=== PATIENT | female | born 2000 | race Caucasian/White ===

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

== ENCOUNTER 2022-03-18 15:30 | Outpatient (CLI) | payer MEDICAID ==
[2022-03-19 23:05] LABS: BACTERIAL VAGINOSIS DNA POSITIVE (NEGATIVE); CANDIDA GLABRATA DNA NEGATIVE (NEGATIVE); CANDIDA GROUP DNA NEGATIVE (NEGATIVE); CANDIDA KRUSEI DNA NEGATIVE (NEGATIVE); TRICHOMONAS VAGINALIS DNA NEGATIVE (NEGATIVE)
[2022-03-20 00:08] LABS: CHLAMYDIA TRACHOMATIS DNA NEGATIVE (NEGATIVE); NEISSERIA GONORRHOEAE DNA NEGATIVE (NEGATIVE)
== END 2022-03-18 23:59 | disposition home or self-care (01) ==
LOC: LAB.R 15:30
PROVIDERS: ATTEND Nurse Practitioner
DX: N89.8 Other specified noninflammatory disorders of vagina (principal); Z11.3 Encounter for screening for infections with a predominantly sexual mode of transmission
CPT/HCPCS: 81514; 87491; 87591; 87661

== ENCOUNTER 2022-04-02 20:29 | Outpatient (CLI) | payer MEDICAID ==
--- NOTE | 2022-04-02 22:55 | Ultrasound Report ---
PROCEDURE: Pelvic w/Transvaginal INDICATIONS: PELVIC PAIN TECHNIQUE: Real-time scanning was performed of the pelvic organs, with image documentation. Additional endovagi nal scanning was necessary due to incomplete visualization of the adnexal and endometrial structures by transabdominal scanning. COMPARISON: None. FINDINGS: Uterus: Uterus is anteverted and normal in size at 6.2 x 3.9 x 5.1 cm. The myometrium is heterogene ous. The endometrium measures 9 mm in combined thickness. Intrauterine device is seen in expected p osition in the endometrial canal. Ovaries: The right ovary measures 4.8 x 3.1 x 4 cm, with a calculated ovarian volume of 31 cc. The left ovary measures 3.1 x 1.7 x 2.6 cm, with a calculated ovarian volume of 7 cc. A right ovarian cys t is seen measuring 3.3 x 2.4 x 3.2 cm with internal daughter cyst, consistent with a physiologic cys t. Less than 12 follicles can be seen in each ovary. No adnexal masses are seen. Other: No pathologic free abdominal or pelvic fluid. IMPRESSION: 1.Right ovary is enlarged by a 3.3 cm physiologic cyst. No signs of ovarian torsion. 2.Intrauterine device is seen in expected position. Reviewed by: Maikel Shay MD on 04/02/2022 10:54 PM PST Approved by: Maikel Shay MD on 04/02/2022 10:54 PM PST Station ID: [id number]
== END 2022-04-02 20:30 | disposition home or self-care (01) ==
LOC: DI 20:29
PROVIDERS: ATTEND Nurse Practitioner
DX: N83.201 Unspecified ovarian cyst, right side (principal); Z97.5 Presence of (intrauterine) contraceptive device

== ENCOUNTER 2022-06-01 14:01 | Outpatient (CLI) | payer MEDICAID ==
--- NOTE | 2022-06-02 15:11 | Ultrasound Report ---
LIMITED ULTRASOUND OF LEFT BREAST: 06/01/2022 CLINICAL: Left breast thickening laterally. No prior exams were available for comparison. Ultrasound of the left breast outer aspect was performed. Ye scale images of the real-time examin ation were reviewed. No significant abnormalities were seen sonographically in the left breast. Specifically, no finding to correspond to the patient's lateral left breast firm palpable abnormality. IMPRESSION: NEGATIVE There is no sonographic correlate to the patient's palpable abnormality and no evidence of malignancy . Screening mammography beginning at age 40 is recommended. Findings and recommendations were conveye d to the patient at time of exam. This exam was interpreted at Station ID: [id number]. Electronically Signed By: Payal harp/:06/01/2022 14:43:49 Ultrasound BI-RADS: 1 Negative BI-RADS CATEGORY: (1) - 1 Unspecified - other recall n/a LATERALITY: (B)
== END 2022-06-01 14:02 | disposition home or self-care (01) ==
LOC: DI 14:01
PROVIDERS: ATTEND Nurse Practitioner
DX: N63.23 Unspecified lump in the left breast, lower outer quadrant (principal)

== ENCOUNTER 2022-06-14 19:35 | Outpatient (CLI) | payer MEDICAID ==
--- NOTE | 2022-06-15 14:44 | Ultrasound Report ---
PROCEDURE: Pelvic w/Transvaginal INDICATIONS: OVARIAN CYST TECHNIQUE: Real-time scanning was performed of the pelvic organs, with image documentation. Additional endovagi nal scanning was necessary due to incomplete visualization of the adnexal and endometrial structures by transabdominal scanning. COMPARISON: None. FINDINGS: Uterus: Uterus is anteverted and normal in size at 6.7 x 3.9 x 5.7 cm. The myometrium is homogeneou s. No discrete uterine fibroids. The endometrium measures 7 mm in combined thickness. Intrauterine device is noted in its central endometrial location. No endometrial mass or fluid. Ovaries: The right ovary measures 3.3 x 1.7 x 3.4 cm, with a calculated ovarian volume of 9.8 cc. T he left ovary measures 3.5 x 2 x 3.3 cm, with a calculated ovarian volume of 12.2 cc. 2.4 x 1.4 x 3 c m cystic structure is noted in left ovary and contains a daughter cyst. Less than 12 follicles can be seen in each ovary. No adnexal masses are seen. Other: No pathologic free abdominal or pelvic fluid. IMPRESSION: 1. Slightly complex appearing left ovarian cyst as above suggest ultrasound follow-up. No right ovari an cyst is seen on the current study. 2. No solid-appearing ovarian lesion. 3. Normal-appearing uterus and endometrium. Intrauterine device is in its location. Reviewed by: Naseem Green MD on 06/15/2022 2:43 PM PST Approved by: Naseem Green MD on 06/15/2022 2:43 PM PST Station ID: [id number]
== END 2022-06-14 19:36 | disposition home or self-care (01) ==
LOC: DI 19:35
PROVIDERS: ATTEND Nurse Practitioner
DX: N83.202 Unspecified ovarian cyst, left side (principal); Z97.5 Presence of (intrauterine) contraceptive device

== ENCOUNTER 2022-12-28 15:37 | Outpatient (CLI) | payer MEDICAID ==
--- NOTE | 2022-12-29 10:49 | Ultrasound Report ---
PROCEDURE: Pelvic w/Transvaginal INDICATIONS: OVARIAN CYST TECHNIQUE: Real-time scanning was performed of the pelvic organs, with image documentation. Additional endovagi nal scanning was necessary due to incomplete visualization of the adnexal and endometrial structures by transabdominal scanning. COMPARISON: Prior pelvic ultrasound dated 06/14/2022 FINDINGS: Uterus: Uterus is anteverted and normal in size at 7.3 x 3.6 x 5.5 cm. The myometrium is homogeneou s. The endometrium measures 7.2 mm in combined thickness. Intrauterine device in expected position. Ovaries: The right ovary measures 3.4 x 2.2 x 1.4 cm, with a calculated ovarian volume of 7.4 cc. T he left ovary measures 3.9 x 2.6 x 2.4 cm, with a calculated ovarian volume of 12.8 cc. The ovaries have a normal sonographic appearance, with bilateral follicular cysts. Previously seen physiologic ov tatiana cyst involving the left ovary has resolved. Greater than 12 follicles can be seen in each ovar y. No adnexal masses are seen. No cystic lesions measuring greater than 3 cm. Other: No pathologic free abdominal or pelvic fluid. IMPRESSION: 1. Interval resolution of physiologic cyst associated with the left ovary in today's examination demo nstrating bilateral follicular cysts. 2. Greater than 12 subcentimeter follicular cysts seen bilaterally which can be associated with polyc ystic ovarian morphology and appropriate clinical setting. 3. Intrauterine device in expected position. Reviewed by: HADLEY Humphrey on 12/29/2022 10:47 AM PDT Approved by: Maikel Shay MD on 12/29/2022 10:47 AM PDT Station ID: [id number]
== END 2022-12-28 15:38 | disposition home or self-care (01) ==
LOC: DI 15:37
PROVIDERS: ATTEND Obstetrics & Gynecology
DX: Z09 Encounter for follow-up examination after completed treatment for conditions other than malignant neoplasm (principal); Z87.42 Personal history of other diseases of the female genital tract; Z97.5 Presence of (intrauterine) contraceptive device